=== PATIENT | male | born 1970 | race Hispanic/Latino ===

== ENCOUNTER 2018-08-05 15:20 | Emergency (ER) | payer OTHER ==
[2018-08-05] MEDS ORDERED: cefTRIAXone (Rocephin) 1 gm Inj IM STA (16:53)
[2018-08-05 16:56] VITALS: BMI 20.9
--- NOTE | 2018-08-05 16:58 | ED PDOC ---
Arrival/HPI - General Chief Complaint: ENT Problem Time Seen by Provider: 08/05/18 15:22 - History of Present Illness Narrative History of Present Illness (Text): 47 y/o M c PMHx asthma p/w sore throat x 2 days. States went to [facility] yesterday, started on Augmentin, states today, worse, can not swallow because of pain. States did not take any pain medication and does not wish to. Denies any difficulty breathing, not concerned for any throat swelling. Past Medical History - Infectious Disease Hx of Infectious Diseases: None - Psychiatric Hx Substance Use: No - Anesthesia Hx Anesthesia: No Family/Social History Family/Social History: No Known Family HX Smoking Status: Unknown If Ever Smoked Hx Alcohol Use: No Hx Substance Use: No Allergies/Home Meds Allergies/Adverse Reactions: Allergies No Known Allergies Allergy (Verified 08/05/18 16:53) Review of Systems - Physician Review All systems were reviewed & negative as marked: Yes - Review of Systems Constitutional: absent: Fevers Respiratory: absent: SOB Physical Exam - Physical Exam Narrative Physical Exam (Text): Gen: NAD Head: NC/AT Eyes: PERRL ENT: MMM. Pharyngeal erythema. No exudates. Neck: No rigidity CV: Regular rate Lungs: No accessory muscle use. No stridor. Extremities: No edema Skin: No rash Neuro: Alert Vital Signs Temp Pulse Resp BP Pulse Ox 08/05/18 16:30 8.7 F L 80 20 134/80 99 Medical Decision Making ED Course and Treatment: Patient was seen again at Dr. Meyer's office today and told to come to ED. Dr. Meyer called me prior to patient's arrival and recommend Ceftriaxone injection and observation. Patient refuses to be kept in hospital, would like medication administration and discharge. Also refused toradol. Instructed to return immediately for fever, neck stiffness, throat swelling, or any other problem. Disposition/Present on Arrival - Present on Arrival Any Indicators Present on Arrival: No History of DVT/PE: No History of Uncontrolled Diabetes: No Urinary Catheter: No History of Decub. Ulcer: No History Surgical Site Infection Following: None - Disposition Have Diagnosis and Disposition been Completed?: Yes Diagnosis: Odynophagia Disposition: HOME/ ROUTINE Disposition Time: 16:59 Patient Plan: Discharge Condition: STABLE Discharge Instructions (ExitCare): Sore Throat, Adult (DC) Referrals: Trae Meyer MD [Family Provider] - Follow up with primary
[2018-08-05 18:00] VITALS: TEMP 98.2
[2018-08-05 18:36] VITALS: BP 128/88; PULSE 78; RESP 18; O2SAT 99
== END 2018-08-05 18:36 | disposition home or self-care (01) ==
LOC: ED 15:20
DX: R13.10 Dysphagia, unspecified (principal)
CPT/HCPCS: 96372; 99282; J0696; J1100